=== PATIENT | male | born 2005 | race African-American/Black ===

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

== ENCOUNTER 2025-04-10 02:16 | Emergency (ER) | payer MEDICAID, SELFPAY ==
--- NOTE | 2025-04-10 02:23 | XRR_ITS ---
PROCEDURE INFORMATION: Exam: XR Chest Exam date and time: 04/10/2025 2:22 AM Age: 19 years old Clinical indication: Dyspnea; Additional info: Dyspnea/cough TECHNIQUE: Imaging protocol: Radiologic exam of the chest. Views: 1 view. COMPARISON: CR XR ribs LT mn 3V w CXR1V [id number] 12/30/2021 5:26 PM FINDINGS: Lungs: No confluent consolidation. Pleural spaces: No pleural effusion. No pneumothorax is seen. Heart/Mediastinum: The heart is normal in size. Mediastinal contours are within normal limits. Bones/joints: No lytic or blastic lesions. No acute osseous abnormality. Intraperitoneal space: No free air is seen under the diaphragm. XR/XR chest 1V portable [id number] IMPRESSION: No acute cardiopulmonary process.
[2025-04-10 02:25] VITALS: BP 128/87; PULSE 81; RESP 16; TEMP 36.9; O2SAT 97; BMI 46.0
--- NOTE | 2025-04-10 02:34 | ECG_ITS ---
[facility] Date: 2025-[facility]-10 Pat Name: Mukul Cardoso Department: Room: Gender: Male Channel [employer]ement[employer] Machine: : 2005 Requested By: Gabe Mayfield Order Number: [id number] Lilibeth MD: Hema Lloyd M.D. Measurements Intervals M[place]ie Rate: 73 P: 31 MO: 163 QRS: 44 QRSD: 105 T: 5 QT: 360 QTc: 397 Interpretive Statements SINUS RHYTHM WITH SINUS ARRHYTHMIA NONSPECIFIC T-WAVE ABNORMALITY No previous ECG available for comparison Electronically Signed On 04-11-2025 09:13:13 CDT by Hema Lloyd M.D. [email or web address]
[2025-04-10 02:40] LABS: Hematocrit 43.4 % (37-53); Hemoglobin 14.90 g/dL (13.2-15.6); Mean Corpuscular HGB Conc 34.3 g/dL (30-55); Mean Corpuscular Hemoglobin 28.1 pg (27-33); Mean Corpuscular Volume 81.9 fl (82-101); Nucleated Red Blood Cells % 0 %; Platelet Count 244 10^3/cmm (157-399); Red Blood Count 5.30 10^6/uL (3.85-5.65); White Blood Count 8.91 10^3/uL (4.5-13.0)
--- NOTE | 2025-04-10 02:41 | ED_ITS ---
HPI - URI/Sore Throat 2 General: Chief Complaint: Upper Respiratory Infection Stated Complaint: SOB Time Seen by Provider: 04/10/25 02:23 History of Present Illness: 19-year-old male presents emergency room with complaint of fever diarrhea sore throat with some shortness of breath been going on for the last 6 days. No hemoptysis. Patient has had a nonproductive cough as well. Several episodes of diarrhea but no hematochezia or melena. Associated symptoms: Deny abdominal pain, chills, chest pain or fever(s) Related Data Home Medications ?Medication ?Instructions ?Recorded ?Confirmed ximena root extract 300 mg 300 mg PO DAILY 11/30/24 capsule Previous Rx's ?Medication ?Instructions ?Recorded albuterol sulfate 90 mcg/actuation 2 inh inhalation Q4 H PRN shortness 04/10/25 aerosol inhaler of breath or wheezing #18 gr ams methylprednisolone 4 mg tablets in See Rx Instructions PO .COMPLEX 04/10/25 a dose pack (Medrol (Hernan)) #21 ea Allergies Allergy/AdvReac Type Severity Reaction Status Date / Time No Known Allergies Allergy Verified 04/10/25 02:29 Review of Systems 2 Const: Denies: fever(s) or chills ENMT: Reports: throat pain Card: Denies: chest pain Resp: Reports: non-productive cough and chest congestion; Denies: dyspnea GI: Denies: abdominal pain : Denies: dysuria, urinary frequency or urinary urgency Musc: Denies: neck pain or back pain Skin/Breast: Denies: rash PFSH ED 2 PFSH: Social History Smoking and tobacco/nicotine status: never used tobacco/nicotine Alcohol intake: never Substance/Drug Use: never Adopted: No Physical Exam 2 Const: GENERAL APPEARANCE: cooperative ORIENTATION/CONSCIOUSNESS: Yes awake, Yes oriented to person, Yes oriented to place and Yes oriented to time HENMT: COMMON NORMALS: normocephalic, atraumatic and hearing grossly normal bilaterally HEAD & SCALP: normocephalic and atraumatic Resp: COMMON NORMALS: normal respiratory effort, No retractions, No use of accessory muscles and clear to auscultation bilaterally AUSCULTATION: clear to auscultation bilaterally Cardio: COMMON NORMALS: regular rate, regular rhythm and No murmurs present (Cardio) RATE: regular rate RHYTHM: regular rhythm GI: COMMON NORMALS: Soft to palpation and No hepatosplenomegaly present A USCULTATION: Yes normoactive bowel sounds PALPATION: Yes Soft to palpation, No Tenderness to palpation present (GI), No Guarding due to palpation present (GI) and Yes No hepatosplenomegaly present Extremity: COMMON NORMALS: normal to inspection, capillary refill normal, no clubbing, cyanosis or edema, no calf tenderness and no pedal edema Neuro: SENSORIUM/ORIENTATION: Yes oriented to person, Yes oriented to place and Yes oriented to time Skin: COMMON NORMALS: no rashes or lesions noted GENERAL SKIN EXAM: no rashes or lesions noted Course 2 Vital Signs: Vital signs: Vital Signs Temperature 98.5 F 04/10/25 02:25 Pulse Rate 83 04/10/25 04:04 Respiratory Rate 16 04/10/25 02:25 Blood Pressure 123/74 04/10/25 04:04 Pulse Oximetry 98 04/10/25 04:04 Oxygen Delivery Me thod Room Air 04/10/25 04:04 MDM - URI/Sore Throat Medical Decision Making Flu COVID RSV negative other labs unremarkable chest x-ray did not show any infiltrates. Steroid taper albuterol to use as needed supportive cares follow- up as needed Lab Data I reviewed the patient's lab results. 04/10/25 02:28 04/10/25 02:28 Radiology Impressions Chest X-Ray 04/10/25 02:23 IMPRESSION: No acute cardiopulmonary process. Laboratory Results WBC 8.91 10^3/uL (4.5-13.0) 04/10/25 02:28 RBC 5.30 10^6/uL (3.85-5.65) 04/10/25 02:28 Hgb 14.90 g/dL (13.2-15.6) 04/10/25 02:28 Hct 43.4 % (37-53) 04/10/25 02:28 MCV 81.9 fl (82-101) L 04/10/25 02:28 MCH 28.1 pg (27-33) 04/10/25 02:28 MCHC 34.3 g/dL (30-55) 04/10/25 02:28 RDW 13.0 % (12.1-15.1) 04/10/25 02: Plt Count 244 10^3/cmm (157-399) 04/10/25 02: MPV 11.0 fL (7.4-10.4) H 04/10/25 02:28 Neut % (Auto) 68.4 % 04/10/25 02: Lymph % (Auto) 22.8 % 04/10/25 02: [place] % (Auto) 5.5 % 04/10/25 02: Eos % (Auto) 2.7 % 04/10/25 02: Baso % (Auto) 0.4 % 04/10/25 02: Neut # (Auto) 6.09 10^3/uL (1.8-8.0) 04/10/25 02: Lymph # (Auto) 2.0 10^3/uL (1.5-6.5) 04/10/25 02: [place] # (Auto) 0.5 10^3/uL (0.2-0.9) 04/10/25 02: Eos # (Auto) 0.2 10^3/uL (0.0-0.8) 04/10/25 02: Baso # (Auto) 0.0 10^3/uL (0.0-0.1) 04/10/25 02: Nucleated RBC % (auto) 0 % 04/10/25 02: Nucleated RBCs # 0.0 /100WBC 04/10/25 02: Sodium 139 mmol/L (136-145) 04/10/25 02: Potassium 3.8 mmol/L (3.5-5.1) 04/10/25 02: Chloride 104 mmol/L (98-107) 04/10/25 02: Carbon Dioxide 24 mmol/L (22-29) 04/10/25 02: Anion Gap 14.8 (5-19) 04/10/25 02: BUN 10 mg/dL (6-20) 04/10/25 02:28 Creatinine 0.9 mg/dL (0.7-1.2) 04/10/25 02:28 GFR Calculation 131.5 mL/min (90-130) H 04/10/25 02:28 Glucose 128 mg/dL (65-115) H 04/10/25 02:28 Calculated Osmolality 289 mOsm/kg (285-295) 04/10/25 02:28 Calcium 9.3 mg/dL (8.5-10.5) 04/10/25 02:28 Total Bilirubin 0.6 mg/dL (0.15-1.2) 04/10/25 02:28 AST 29 U/L (0-40) 04/10/25 02:28 ALT 33 U/L (0-41) 04/10/25 02:28 Alkaline Phosphatase 74 U/L (40-130) 04/10/25 02:28 Total Protein 7.7 g/dL (6.6-8.7) 04/10/25 02:28 Albumin 4.3 g/dL (3.5-5.2) 04/10/25 02:28 Globulin 3.4 g/dL (1.3-4.6) 04/10/25 02:28 Influenza A (PCR) Negative (Negative) 04/10/25 03:27 Influenza Type B (PCR) Negative (Negative) 04/10/25 03:27 RSV (PCR) Negative (Negative) 04/10/25 03:27 SARS-CoV-2 (PCR) Negative (Negative) 04/10/25 03:27 All radiology interpretation(s) finalized by discharge EKG Data EKG 1: Interpretation: EKG 04/10/2025 2:34 AM sinus rhythm rate of 73. #163 QTc [address] changes no ST elevation.10 no previous EKGs for comparison Discharge Plan Discharge Patient Disposition: Home Clinical Impression: Viral infection Condition: Stable Prescriptions: New methylprednisolone [Medrol (Hernan)] 4 mg tablets,dose pack See Rx Instructions .ROUTE .COMPLEX Qty: 21 0RF Rx Instructions: orally per package directions albuterol sulfate 90 mcg/actuation HFA aerosol inhaler 2 inh INHALATION Q4H PRN (Reason: shortness of breath or wheezing) Qty: 18 0RF No Action ashwagandha root extract 300 mg Capsule 300 mg PO DAILY Discharge Orders: Discharge ED (Routine); Ordered 04/10/25 Ordered By: Gabe Philip Referrals: Emmy Bell MD [Primary Care Provider, Pediatrics] Discharge Diet: Usual diet Discharge Activity: Increase activity as tolerated Patient Instructions: Opioid Safety, Pain Management, Patient Portal & [facility] Instructions Activity Restrictions/Additional Instructions: [facility]. It is very important that you follow up as instructed or that you return to the Emergency Department should you have concerns or if your condition changes or worsens in any way. Emergency department visits are focused on emergent conditions, in some cases you may require further evaluation on an outpatient basis. You were seen in the emergency room with complaints of shortness of breath wheezing and upper respiratory symptoms. Viral panel for flu COVID and RSV was negative. Chest x-ray and other laboratory test were also negative. This is most likely a viral infection we will give you a steroid taper pack as well as albuterol to use as needed. This should help alleviate some of your symptoms. (Please note that included in your discharge packet is information concerning opioid safety and pain management. This information is given to all patients were discharged from the ER regardless of their discharge diagnosis or the medicines they usually take or are prescribed.) Print Language: Lebanese Coding Level of Care Code ED Molder Punch for Kendrick Rico
[2025-04-10 02:59] LABS: Alanine Aminotransferase 33 U/L (0-41); Albumin Level 4.3 g/dL (3.5-5.2); Alkaline Phosphatase 74 U/L (40-130); Anion Gap 14.8 (5-19); Aspartate Amino Transferase 29 U/L (0-40); Blood Urea Nitrogen 10 mg/dL (6-20); Calcium 9.3 mg/dL (8.5-10.5); Carbon Dioxide 24 mmol/L (22-29); Chloride 104 mmol/L (98-107); Creatinine Clr Calc Pharmacy 202.1305; Globulin 3.4 g/dL (1.3-4.6); Glucose 128 mg/dL (65-115); Osmolality Calculated 289 mOsm/kg (285-295); Potassium 3.8 mmol/L (3.5-5.1); Sodium 139 mmol/L (136-145); Total Protein 7.7 g/dL (6.6-8.7)
[2025-04-10 03:04] VITALS: BP 130/67; PULSE 90; O2SAT 97
[2025-04-10 04:04] VITALS: BP 123/74; PULSE 83; O2SAT 98
[2025-04-10 04:08] LABS: Respiratory Syncytial Virus Ce NEGATIVE (Negative); SARS-CoV-2 PCR NEGATIVE (Negative)
[2025-04-10 04:29] VITALS: BP 123/74; PULSE 86; O2SAT 96
== END 2025-04-10 04:32 | disposition home or self-care (01) ==
PROVIDERS: Emergency Provider Family Medicine; PCP Pediatrics Adolescent Medicine
DX: B34.9 Viral infection, unspecified (principal); Z11.52 Encounter for screening for COVID-19
CPT/HCPCS: 71045; 80053; 85025; 87637; 93005; 99285